=== PATIENT | female | born 1970 | race Caucasian/White ===

== ENCOUNTER 2017-03-11 12:45 | Emergency (ER) | payer OTHER ==
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
--- NOTE | 2017-03-11 13:18 | DIAGNOSTIC IMAGING REPORT ---
PROCEDURE: CT CERVICAL SPINE W/O CONTRAST INDICATION: TRAUMA/INJURY TECHNIQUE: Noncontrast axial images with sagittal and coronal reformations. COMPARISON: None. FINDINGS: Osseous structures and disc spaces are normal. No evidence of an acute process or fracture. Alignment is normal. IMPRESSION: 1. Negative CT cervical spine. No evidence of an acute process or fracture.
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
--- NOTE | 2017-03-11 16:04 | ED ORDER SUMMARY ---
..... Patient: JEAN CARLOS VELEZ OrderSheet [facility] VisitID: [id number] [place] [address] 46y, F Registration Date/Time: 03/11/2017 ORDER SHEET Weight: 56.6 kg (stated) Allergies: No Known Drug Allergy GENERAL ORDERS: CT Head wo Cont Urgent (12:51 03/11/2017 Montez Tovar) (Ack 12:57 LNations ER Tech1) (13:09 LNations ER Tech1) CT Cervical Spine wo Cont Urgent (12:52 03/11/2017 Montez Tovar) (Ack 12:57 LNations ER Tech1) (13:09 LNations ER Tech1) Multi Mission Helicopter Aircrewman (Continuous) (Trauma) (12:52 03/11/2017 Montez Tovar) (Ack 12:55 LNations ER Tech1) (16:43 SSambou R.N.) Tibia/Fibula Right Urgent (12:52 03/11/2017 Montez Tovar) (Ack 12:57 LNations ER Tech1) (13:53 LNations ER Tech1) Knee 4V Left Urgent (12:52 03/11/2017 Montez Tovar) (Ack 12:57 LNations ER Tech1) (13:54 LNations ER Tech1) CBC w Diff Urgent (12:52 03/11/2017 Montez Tovar) (Ack 12:55 LNations ER Tech1) CMP Urgent (12:52 03/11/2017 Montez Tovar) (Ack 12:55 LNations ER Tech1) UA-Culture if indicated Urgent (12:52 03/11/2017 Montez Tovar) (Ack 12:55 LNations ER Tech1) PT with INR Urgent (12:52 03/11/2017 Montez Tovar) (Ack 12:55 LNations ER Tech1) PTT Urgent (12:52 03/11/2017 Montez Tovar) (Ack 12:55 LNations ER Tech1) Lipase Urgent (12:52 03/11/2017 Montez Tovar) (Ack 12:55 LNations ER Tech1) Urine Urgent (12:52 03/11/2017 Montez Tovar) (Ack 12:57 LNations ER Tech1) Urine Drug Screen Urgent (12:52 03/11/2017 Montez Tovar) (Ack 12:57 LNations ER Tech1) Ethyl Alcohol Urgent (12:52 03/11/2017 Montez Tovar) (Ack 12:57 LNations ER Tech1) Type & Screen Urgent (12:52 03/11/2017 Montez Tovar) (Ack 12:57 LNations ER Tech1) Pulse oximeter (12:52 03/11/2017 Montez Tovar) (Ack 12:55 LNations ER Tech1) (16:43 Edouard R.N.) Knee Immobilizer (16:29 03/11/2017 Montez Tovar) Crutches (16:29 03/11/2017 Montez Tovar) MEDICATION ORDERS: IV FLUIDS: IV NS : initial bolus 2L, then none - for X1 (NOW) (12:52 03/11/2017 Montez Tovar) (13:22 Edouard R.N.) Fentanyl IV 50 mcg (HIGH ALERT MEDICATION, NOW) (12:52 03/11/2017 Montez Tovar) (13:29 Edouard R.N.) ORDER SHEET NOTES: [Electronically signed by Sheriff Katherine Rogers (16:48 03/11/2017)] [Electronically signed by Joel Solorzano Dr. (05:35 03/14/2017)] [Electronically locked/signed by Sheriff Katherine Rogers (16:48 03/11/2017)]
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
--- NOTE | 2017-03-11 16:04 | ED ORDER SUMMARY ---
..... Patient: JEAN CARLOS VELEZ OrderSheet [facility] VisitID: [id number] [place] [address] 46y, F Registration Date/Time: 03/11/2017 ORDER SHEET Weight: 56.6 kg (stated) Allergies: No Known Drug Allergy GENERAL ORDERS: CT Head wo Cont Urgent (12:51 03/11/2017 Montez Tovar) (Ack 12:57 LNations ER Tech1) (13:09 LNations ER Tech1) CT Cervical Spine wo Cont Urgent (12:52 03/11/2017 Montez Tovar) (Ack 12:57 LNations ER Tech1) (13:09 LNations ER Tech1) Stand Up Forklift Operator (Continuous) (Trauma) (12:52 03/11/2017 Montez Tovar) (Ack 12:55 LNations ER Tech1) (16:43 SSambou R.N.) Tibia/Fibula Right Urgent (12:52 03/11/2017 Montez Tovar) (Ack 12:57 LNations ER Tech1) (13:53 LNations ER Tech1) Knee 4V Left Urgent (12:52 03/11/2017 Montez Tovar) (Ack 12:57 LNations ER Tech1) (13:54 LNations ER Tech1) CBC w Diff Urgent (12:52 03/11/2017 Montez Tovar) (Ack 12:55 LNations ER Tech1) CMP Urgent (12:52 03/11/2017 Montez Tovar) (Ack 12:55 LNations ER Tech1) UA-Culture if indicated Urgent (12:52 03/11/2017 Montez oTvar) (Ack 12:55 LNations ER Tech1) PT with INR Urgent (12:52 03/11/2017 Montez Tovar) (Ack 12:55 LNations ER Tech1) PTT Urgent (12:52 03/11/2017 Montez Tovar) (Ack 12:55 LNations ER Tech1) Lipase Urgent (12:52 03/11/2017 Montez Tovar) (Ack 12:55 LNations ER Tech1) Urine Urgent (12:52 03/11/2017 Montez oTvar) (Ack 12:57 LNations ER Tech1) Urine Drug Screen Urgent (12:52 03/11/2017 Montez Tovar) (Ack 12:57 LNations ER Tech1) Ethyl Alcohol Urgent (12:52 03/11/2017 Montez Tovar) (Ack 12:57 LNations ER Tech1) Type & Screen Urgent (12:52 03/11/2017 Montez Tovar) (Ack 12:57 LNations ER Tech1) Pulse oximeter (12:52 03/11/2017 Montez Tovar) (Ack 12:55 LNations ER Tech1) (16:43 Edouard R.N.) Knee Immobilizer (16:29 03/11/2017 Montez Tovar) Crutches (16:29 03/11/2017 Montez Tovar) MEDICATION ORDERS: IV FLUIDS: IV NS : initial bolus 2L, then none - for X1 (NOW) (12:52 03/11/2017 Montez Tovar) (13:22 Edouard R.N.) Fentanyl IV 50 mcg (HIGH ALERT MEDICATION, NOW) (12:52 03/11/2017 Montez Tovar) (13:29 Edouard R.N.) ORDER SHEET NOTES: [Electronically signed by Sheriff Katherine Rogers (16:48 03/11/2017)] [Electronically signed by Joel Solorzano Dr. (05:35 03/14/2017)] [Electronically locked/signed by Sheriff Katherine Rogers (16:48 03/11/2017)]
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
--- NOTE | 2017-03-14 05:36 | ED MED RECONCILIATION SUMMARY ---
Patient: JEAN CARLOS VELEZ Medication Reconciliation Report [facility] VisitID: [id number] [address] [place] [address] 46y, F Registration Date/Time: 03/11/2017 Weight: 56.6 kg Height/Length: 62 in. BMI: 22.8 ALLERGIES: No Known Drug Allergy The patient's Home Medications are listed below: CONTINUE TAKING THE FOLLOWING MEDICATIONS: Ibuprofen Oral The source(s) of the original Home Medication information: Not obtained. The following Medications were given to the patient in the Emergency Department: IV NS IV Fluids bolus 0, then 1000 mL/hr, administered: 03/11/2017 1:21:00 PM Fentanyl [IVP] IVP 25 mcg, administered: 03/11/2017 1:29:00 PM Fentanyl [IVP] IVP 25 mcg, administered: 03/11/2017 2:12:00 PM IV NS IV Fluids bolus 0, then 1000 mL/hr, administered: 03/11/2017 2:33:00 PM The following Medications were prescribed to the patient: Motrin 600 mg tablets: take 1 tablet orally every 6 hours as needed for pain, stiffness or swelling. Dispense thirty (30). No refill. Substitution is permissible.(take with food) -- Joel Solorzano Dr. Percocet 5 mg/325 mg: take 1 tablet orally every 6 hours as needed for pain. Dispense twelve (12). No refill. Substitution is permissible. -- Joel Solorzano Dr.
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
--- NOTE | 2017-03-14 05:36 | ED MAR SUMMARY ---
..... Medication Administration Record [facility] [address] [place] [address] Patient: JEAN CARLOS VELEZ Visit ID: [id number] 46y, F Weight: 56.6 kg Height/Length: 62 in BMI: 22.8 ALLERGIES: No Known Drug Allergy Start 13:21 03/11/2017 Sheriff Rogers R.N. Medication Administered: IV NS (SALINE), Dose: IV Fluids over 1 hour(s), Rate: 1000 mL/hr, Dispensed: 1000 mL bag, Site: #1 right AC. Medication Ordered: IV NS : initial bolus 2L, then none - for X1 (NOW). Given 13:29 03/11/2017 Sheriff Rogers R.N. Medication Administered: FENTANYL [IVP], Dose: 25 mcg IVP over 1 minute(s), Site: #1 right AC. Medication Ordered: Fentanyl IV 50 mcg (HIGH ALERT MEDICATION, NOW). Given 14:12 03/11/2017 Sheriff Rogers R.N. Medication Administered: FENTANYL [IVP], Dose: 25 mcg IVP over 1 minute(s), Site: #1 right AC. Medication Ordered: Fentanyl IV 50 mcg (HIGH ALERT MEDICATION, NOW). Start 14:33 03/11/2017 Sheriff Rogers R.N. Medication Administered: IV NS (SALINE), Dose: IV Fluids over 1 hour(s), Rate: 1000 mL/hr, Dispensed: 1000 mL bag, Site: #1 right AC. Medication Ordered: IV NS : initial bolus 2L, then none - for X1 (NOW).
--- NOTE | 2017-03-14 05:36 | ED MAR SUMMARY ---
..... Medication Administration Record [facility] [address] [place] [address] Patient: JEAN CARLOS VELEZ Visit ID: [id number] 46y, F Weight: 56.6 kg Height/Length: 62 in BMI: 22.8 ALLERGIES: No Known Drug Allergy Start 13:21 03/11/2017 Sheriff Rogers R.N. Medication Administered: IV NS (SALINE), Dose: IV Fluids over 1 hour(s), Rate: 1000 mL/hr, Dispensed: 1000 mL bag, Site: #1 right AC. Medication Ordered: IV NS : initial bolus 2L, then none - for X1 (NOW). Given 13:29 03/11/2017 Sheriff Rogers R.N. Medication Administered: FENTANYL [IVP], Dose: 25 mcg IVP over 1 minute(s), Site: #1 right AC. Medication Ordered: Fentanyl IV 50 mcg (HIGH ALERT MEDICATION, NOW). Given 14:12 03/11/2017 Sheriff Rogers R.N. Medication Administered: FENTANYL [IVP], Dose: 25 mcg IVP over 1 minute(s), Site: #1 right AC. Medication Ordered: Fentanyl IV 50 mcg (HIGH ALERT MEDICATION, NOW). Start 14:33 03/11/2017 Sheriff Rogers R.N. Medication Administered: IV NS (SALINE), Dose: IV Fluids over 1 hour(s), Rate: 1000 mL/hr, Dispensed: 1000 mL bag, Site: #1 right AC. Medication Ordered: IV NS : initial bolus 2L, then none - for X1 (NOW).
--- NOTE | 2017-03-14 05:36 | ED MED RECONCILIATION SUMMARY ---
Patient: JEAN CARLOS VELEZ Medication Reconciliation Report [facility] VisitID: [id number] [address] [place] [address] 46y, F Registration Date/Time: 03/11/2017 Weight: 56.6 kg Height/Length: 62 in. BMI: 22.8 ALLERGIES: No Known Drug Allergy The patient's Home Medications are listed below: CONTINUE TAKING THE FOLLOWING MEDICATIONS: Ibuprofen Oral The source(s) of the original Home Medication information: Not obtained. The following Medications were given to the patient in the Emergency Department: IV NS IV Fluids bolus 0, then 1000 mL/hr, administered: 03/11/2017 1:21:00 PM Fentanyl [IVP] IVP 25 mcg, administered: 03/11/2017 1:29:00 PM Fentanyl [IVP] IVP 25 mcg, administered: 03/11/2017 2:12:00 PM IV NS IV Fluids bolus 0, then 1000 mL/hr, administered: 03/11/2017 2:33:00 PM The following Medications were prescribed to the patient: Motrin 600 mg tablets: take 1 tablet orally every 6 hours as needed for pain, stiffness or swelling. Dispense thirty (30). No refill. Substitution is permissible.(take with food) -- Joel Solorzano Dr. Percocet 5 mg/325 mg: take 1 tablet orally every 6 hours as needed for pain. Dispense twelve (12). No refill. Substitution is permissible. -- Joel Solorzano Dr.
== END 2017-03-11 16:38 | disposition home or self-care (01) ==
LOC: ED SRH 12:45
DX: S16.1XXA Strain of muscle, fascia and tendon at neck level, initial encounter (principal); R41.3 Other amnesia; S80.02XA Contusion of left knee, initial encounter; S80.11XA Contusion of right lower leg, initial encounter; S09.90XA Unspecified injury of head, initial encounter; V43.64XA Car passenger injured in collision with van in traffic accident, initial encounter; Y92.410 Unspecified street and highway as the place of occurrence of the external cause; I10 Essential (primary) hypertension